=== PATIENT | female | born 1990 | race Caucasian/White ===

== ENCOUNTER 2016-02-25 14:04 | Emergency (ER) | payer BC, MEDICAID ==
[~2016-02-25] VITALS: Ht 170.2 cm; Wt 100.5 kg
[~2016-02-25 14:04] MED LIST: ADVIL200 MG PO; ATIVAN 0.50.5 MG/TAB PO; ATIVAN 1MG T1 MG/TAB PO; BENADRYL50 MG PO; CLINDAMYCIN VG; COLACE 100100 MG/CAP PO; FERROUS SULFATE65 MG PO; IRON325 M1 PO; KEPPRA1000 MG PO; MULTIPLE VITAMI1 CAP PO; NEXPLANON68 MG ID; NO HOME MEDICATIONS; NORCO 325 MG-51 TAB PO; PERCOCET 325 MG1 TA2 PO; PHENERGAN 25 TA25 MG PO; PRENATAL PLUS1 TA2 PO; TYLENOL W/COD1 UDTAB PO; ZOFRAN 4MG T4 MG/TAB PO
[2016-02-25 15:07] LABS: BASO # 0.1 (0.0-0.2); BASO % 0.9 % (0.0-2.0); EOS # 0.2 (0.0-0.7); EOS % 2.5 % (0-4.0); GRAN # 4.2 (1.4-6.5); GRAN % 51.2 % (42.2-75.2); HEMOGLOBIN 14.6 g/dl (12.5-16.0); LYMPH # 3.1 (1.2-3.4); MEAN CELL VOLUME 86 fl (80.0-100.0); MEAN CORPUSCULAR HEMOGLOBIN 31 pg (27.0-31.0); MEAN CORPUSCULAR HGB CONC 37 g/dl (33.0-37.0); MEAN PLATELET VOLUME 10.1 fl (7.4-10.4); MONO # 0.6 (0.1-0.6); MONO % 7.2 % (1.7-9.3); PLATELET COUNT 371 K/mm3 (130-400); RED BLOOD COUNT 4.68 M/mm3 (4.10-5.30); REDCELL DISTRIBUTION WIDTH-CV 12.2 % (11.5-14.5); WHITE BLOOD COUNT 8.1 K/mm3 (4.8-10.8)
[2016-02-25 15:36] LABS: ADJUSTED CALCIUM 9.4 mg/dL (8.4-10.2); ALBUMIN 4.4 gm/dL (3.5-5.0); BILIRUBIN,TOTAL 0.7 mg/dL (0.0-1.0); CALCIUM 9.7 mg/dL (8.4-10.2); CREATININE, serum 0.58 mg/dL (0.52-1.25); POTASSIUM 3.9 mmol/L (3.4-5.0); TOTAL PROTEIN 7.9 gm/dL (6.4-8.2)
[2016-02-25 16:08] LABS: PH 7 (5-8); URINE APPEARANCE Cloudy; URINE BACTERIA Rare /hpf; URINE BILIRUBIN Negative (NEGATIVE); URINE BLOOD 3+ (NEGATIVE); URINE COLOR Yellow; URINE GLUCOSE Negative (NEGATIVE); URINE KETONE Negative (NEGATIVE); URINE RBC >50 /hpf; URINE UROBILINOGEN Negative (NEGATIVE)
[2016-02-25] MEDS ORDERED: NORCO 325 MG-51 TAB PO (16:33)
[2016-02-25] MEDS ORDERED: ZOFRAN ODT4 MG PO (16:33)
[2016-02-25] MEDS ORDERED: CEFTIN500 MG PO (16:33)
[2016-02-25 18:00] VITALS: BP 122/68; PULSE 68; TEMP 98.2
== END 2016-02-25 18:01 | disposition home or self-care (01) ==
LOC: COL.ER 14:04
PROVIDERS: Nurse Practitioner
DX: N39.0 Urinary tract infection, site not specified (principal); K76.0 Fatty (change of) liver, not elsewhere classified; Z87.442 Personal history of urinary calculi; Z90.49 Acquired absence of other specified parts of digestive tract; F17.210 Nicotine dependence, cigarettes, uncomplicated
CPT/HCPCS: J0696; J2270; J2405; J3010; J7030

== ENCOUNTER 2016-08-31 11:10 | Emergency (ER) | payer BC ==
[~2016-08-31] VITALS: Ht 170.2 cm; Wt 99.1 kg
[~2016-08-31 11:10] MED LIST changes: +CEFTIN500 MG PO; +ZOFRAN ODT4 MG PO
[2016-08-31 11:11] VITALS: TEMP 98.9
[2016-08-31] MEDS ORDERED: XANAX .25M0.25 MG/TA PO (11:14)
[2016-08-31 11:37] LABS: HEMATOCRIT 37.3 % (37.0-47.0); HEMOGLOBIN 13.7 g/dl (12.5-16.0); MEAN CELL VOLUME 85 fl (80.0-100.0); MEAN CORPUSCULAR HEMOGLOBIN 31 pg (27.0-31.0); MEAN CORPUSCULAR HGB CONC 37 g/dl (33.0-37.0); PLATELET COUNT 303 K/mm3 (130-400); REDCELL DISTRIBUTION WIDTH-CV 12.6 % (11.5-14.5); WHITE BLOOD COUNT 7.3 K/mm3 (4.8-10.8)
[2016-08-31 11:47] LABS: ALBUMIN 4.2 gm/dL (3.5-5.0); BILIRUBIN,TOTAL 0.9 mg/dL (0.0-1.0); CALCIUM 9.2 mg/dL (8.4-10.2); CREATININE, serum 0.56 mg/dL (0.52-1.25); POTASSIUM 3.5 mmol/L (3.4-5.0); TOTAL PROTEIN 7.3 gm/dL (6.4-8.2)
[2016-08-31 11:48] LABS: ADD PATHOLOGY DIFF REVIEW NO
[2016-08-31 12:03] LABS: PROLACTIN 15.6 ng/mL (3.0-18.6)
[2016-08-31 13:04] LABS: BAND 1 % (0-10); EOSINOPHIL 3 % (0-4); METAMYELOCYTE 1 % (0-0); MYELOCYTE 1 % (0-0); NEUTROPHILS 56 % (42.0-75.2); PLATELET ESTIMATE INCREASED (NORMAL); TOTAL CELLS COUNTED 100
[2016-08-31 13:08] VITALS: BP 101/64; PULSE 75
== END 2016-08-31 13:08 | disposition home or self-care (01) ==
LOC: COL.ER 11:10
PROVIDERS: Emergency Medicine
DX: R55 Syncope and collapse (principal); R56.9 Unspecified convulsions
CPT/HCPCS: J7030

== ENCOUNTER 2017-11-22 07:39 | Emergency (ER) | payer BC ==
[~2017-11-22] VITALS: Ht 167.6 cm; Wt 96.9 kg
[~2017-11-22 07:39] MED LIST changes: +XANAX .25M0.25 MG/TA PO
[2017-11-22 07:47] VITALS: BP 104/62; TEMP 98.4
[2017-11-22] MEDS ORDERED: PROVENTIL0.09 MG/A1 IH (08:33)
[2017-11-22] MEDS ORDERED: PREDNISONE20 MG PO (08:33)
[2017-11-22 08:55] VITALS: PULSE 90
== END 2017-11-22 08:55 | disposition home or self-care (01) ==
LOC: COL.ER 07:39
DX: J98.01 Acute bronchospasm (principal); B34.9 Viral infection, unspecified; Z90.49 Acquired absence of other specified parts of digestive tract; Z98.51 Tubal ligation status; F17.210 Nicotine dependence, cigarettes, uncomplicated

== ENCOUNTER 2022-06-10 11:09 | Emergency (ER) | payer MEDICAID ==
[~2022-06-10] VITALS: Ht 167.6 cm; Wt 95.9 kg
[~2022-06-10 11:09] MED LIST changes: +PREDNISONE20 MG PO; +PROVENTIL0.09 MG/A1 IH
[2022-06-10 11:12] VITALS: TEMP 97.9
[2022-06-10 12:06] LABS: BASO # 0.1 K/mm3 (0.0-0.2); BASO % 0.8 % (0.0-2.0); EOS # 0.2 K/mm3 (0.0-0.7); EOS % 2.2 % (0.0-4.0); GRAN # 5.3 K/mm3 (1.4-6.5); GRAN % 57.1 % (42.2-75.2); HEMATOCRIT 39.7 % (37.0-47.0); HEMOGLOBIN 14.8 g/dl (12.5-16.0); LYMPH # 3.1 K/mm3 (1.2-3.4); LYMPH % 32.9 % (20.0-51.0); MEAN CELL VOLUME 85 fl (80.0-100.0); MEAN CORPUSCULAR HEMOGLOBIN 32 pg (27-31); MEAN CORPUSCULAR HGB CONC 37 g/dl (33.0-37.0); MEAN PLATELET VOLUME 9.8 fl (7.4-10.4); MONO # 0.6 K/mm3 (0.1-0.6); MONO % 6.6 % (1.7-9.3); PLATELET COUNT 414 K/mm3 (130-400); RED BLOOD COUNT 4.66 M/mm3 (4.10-5.30); REDCELL DISTRIBUTION WIDTH-CV 11.9 % (11.5-14.5)
[2022-06-10 12:16] LABS: ALANINE AMINOTRANSFERASE 15 U/L (0-55); ALBUMIN 4.1 gm/dL (3.5-5.0); ALKALINE PHOSPHATASE 54 U/L (40-150); ANION GAP 11 mmol/L (7-16); AST,SGOT 13 U/L (5-34); BILIRUBIN,TOTAL 0.5 mg/dL (0.2-1.2); BLOOD UREA NITROGEN 10 mg/dL (7-19); CALCIUM 9.3 mg/dL (8.4-10.2); CARBON DIOXIDE 18 mmol/L (22-29); CHLORIDE 111 mmol/L (98-107); CREATININE, serum 0.73 mg/dL (0.57-1.11); GLUCOSE 92 mg/dL (70-99); SODIUM 140 mmol/L (136-145); TOTAL PROTEIN 7.6 gm/dL (6.2-8.1)
[2022-06-10 12:17] LABS: ALCOHOL(ethanol),MEDICAL < 10 mg/dL (0-10)
[2022-06-10] MEDS ORDERED: NORCO 325 MG-51 TAB PO (13:06)
[2022-06-10 13:18] VITALS: BP 105/70; PULSE 98
[2022-06-10] MEDS ORDERED: KEPPRA 500MG500 MG PO (14:12)
== END 2022-06-10 13:19 | disposition home or self-care (01) ==
LOC: COL.ER 11:09
PROVIDERS: Emergency Medicine
DX: S09.90XA Unspecified injury of head, initial encounter (principal); S49.92XA Unspecified injury of left shoulder and upper arm, initial encounter; G40.909 Epilepsy, unspecified, not intractable, without status epilepticus; T42.6X6A Underdosing of other antiepileptic and sedative-hypnotic drugs, initial encounter; Z91.128 Patient's intentional underdosing of medication regimen for other reason; Z88.5 Allergy status to narcotic agent; Z28.310 Unvaccinated for COVID-19; Z87.81 Personal history of (healed) traumatic fracture; W18.30XA Fall on same level, unspecified, initial encounter; Y92.59 Other trade areas as the place of occurrence of the external cause; Y99.0 Civilian activity done for income or pay
CPT/HCPCS: J1953; J3010; J7030

== ENCOUNTER 2023-01-10 10:48 | Emergency (ER) | payer MEDICAID ==
[~2023-01-10] VITALS: Ht 167.6 cm; Wt 105.5 kg
[~2023-01-10 10:48] MED LIST changes: +KEPPRA 500MG500 MG PO
[2023-01-10 10:49] VITALS: TEMP 98.6
[2023-01-10 11:28] LABS: COLLECTION METHOD CLEAN CATCH
[2023-01-10 11:49] LABS: TRICYCLIC ANTIDEPRESS URINE NEGATIVE
[2023-01-10 11:57] LABS: BASO # 0.1 K/mm3 (0.0-0.2); EOS # 0.3 K/mm3 (0.0-0.7); EOS % 3.2 % (0.0-4.0); GRAN # 4.5 K/mm3 (1.4-6.5); GRAN % 55.3 % (42.2-75.2); HEMATOCRIT 41.7 % (37.0-47.0); HEMOGLOBIN 14.4 g/dl (12.5-16.0); LYMPH # 2.6 K/mm3 (1.2-3.4); LYMPH % 32.6 % (20.0-51.0); MEAN CELL VOLUME 91 fl (80.0-100.0); MEAN CORPUSCULAR HEMOGLOBIN 31 pg (27-31); MEAN CORPUSCULAR HGB CONC 35 g/dl (33.0-37.0); MEAN PLATELET VOLUME 9.5 fl (7.4-10.4); MONO # 0.6 K/mm3 (0.1-0.6); MONO % 7.5 % (1.7-9.3); PLATELET COUNT 413 K/mm3 (130-400); REDCELL DISTRIBUTION WIDTH-CV 12.7 % (11.5-14.5)
[2023-01-10 12:02] LABS: URINE APPEARANCE Clear (CLEAR/HAZY); URINE BLOOD TRACE-INTACT (NEGATIVE); URINE COLOR Yellow (YELLOW); URINE GLUCOSE Negative (NEGATIVE); URINE KETONE Negative (NEGATIVE); URINE NITRATE Negative (NEGATIVE); URINE PROTEIN(semi-quant) Negative (NEGATIVE); URINE UROBILINOGEN 0.2 E.U/dL (0.2-1.0)
[2023-01-10 12:03] LABS: URINE RBC 0-2 /hpf (0-2)
[2023-01-10 12:06] LABS: ALBUMIN 3.8 gm/dL (3.5-5.0); BILIRUBIN,TOTAL 0.4 mg/dL (0.2-1.2); CALCIUM 9.2 mg/dL (8.4-10.2); CREATININE, serum 0.68 mg/dL (0.57-1.11); POTASSIUM 3.9 mmol/L (3.5-4.5); TOTAL PROTEIN 7.4 gm/dL (6.2-8.1)
[2023-01-10 13:17] VITALS: BP 127/79; PULSE 85
== END 2023-01-10 13:17 | disposition home or self-care (01) ==
LOC: COL.ER 10:48
PROVIDERS: Emergency Medicine
DX: R56.9 Unspecified convulsions (principal); Z79.899 Other long term (current) drug therapy

== ENCOUNTER 2023-02-22 10:40 | Emergency (ER) | payer SELFPAY ==
[~2023-02-22] VITALS: Ht 167.6 cm; Wt 116.4 kg
[2023-02-22 10:46] VITALS: TEMP 97.8
[2023-02-22 13:14] LABS: COLLECTION METHOD CLEAN CATCH
[2023-02-22] MEDS ORDERED: LR 1,000 ML IV ONE (13:15)
[2023-02-22] MEDS ORDERED: droPERidol 2.5 MG/ML 2 ML VIAL IV ONE (13:15)
[2023-02-22 13:23] LABS: BASO # 0.1 K/mm3 (0.0-0.2); EOS # 0.1 K/mm3 (0.0-0.7); EOS % 1.2 % (0.0-4.0); GRAN # 3.6 K/mm3 (1.4-6.5); GRAN % 51.9 % (42.2-75.2); HEMATOCRIT 39.4 % (37.0-47.0); HEMOGLOBIN 14.4 g/dl (12.5-16.0); LYMPH # 2.4 K/mm3 (1.2-3.4); LYMPH % 35.1 % (20.0-51.0); MEAN CELL VOLUME 88 fl (80.0-100.0); MEAN CORPUSCULAR HEMOGLOBIN 32 pg (27-31); MEAN CORPUSCULAR HGB CONC 37 g/dl (33.0-37.0); MEAN PLATELET VOLUME 9.3 fl (7.4-10.4); MONO # 0.7 K/mm3 (0.1-0.6); MONO % 10.4 % (1.7-9.3); PLATELET COUNT 394 K/mm3 (130-400); RED BLOOD COUNT 4.48 M/mm3 (4.10-5.30); REDCELL DISTRIBUTION WIDTH-CV 12.5 % (11.5-14.5)
[2023-02-22 13:24] LABS: PH 5.5 (5.0-8.5); URINE APPEARANCE Clear (CLEAR/HAZY); URINE BLOOD Negative (NEGATIVE); URINE COLOR Yellow (YELLOW); URINE GLUCOSE Negative (NEGATIVE); URINE KETONE Negative (NEGATIVE); URINE NITRATE Negative (NEGATIVE); URINE PROTEIN(semi-quant) Negative (NEGATIVE); URINE UROBILINOGEN 0.2 E.U/dL (0.2-1.0)
[2023-02-22 13:32] LABS: ALBUMIN 3.9 gm/dL (3.5-5.0); BILIRUBIN,TOTAL 0.3 mg/dL (0.2-1.2); CALCIUM 9.2 mg/dL (8.4-10.2); CREATININE, serum 0.78 mg/dL (0.57-1.11); TOTAL PROTEIN 7.8 gm/dL (6.2-8.1)
[2023-02-22 13:33] LABS: SQUAMOUS EPITHELIAL 0-2 /hpf (0-10)
[2023-02-22 13:34] LABS: URINE BACTERIA Moderate /hpf (NONE SEEN); URINE RBC 0-2 /hpf (0-2)
[2023-02-22] MEDS ORDERED: Acetaminophen 500 MG TAB PO ONE (13:45)
[2023-02-22] MEDS ORDERED: CEFTRIAXONE IV ONE (14:00)
[2023-02-22] MEDS ORDERED: WATER FOR INJECTION STERILE IV ONE (14:00)
[2023-02-22] MEDS ORDERED: VANTIN 200200 MG/TAB PO (14:05)
[2023-02-22] MEDS ORDERED: ZOFRAN ODT4 MG PO (14:05)
[2023-02-22 14:08] VITALS: BP 122/86; PULSE 83
[2023-02-22] MEDS ORDERED: cefTRIAXone 2 G in Water For Injection,Sterile 20 ML IV ONE (14:15)
== END 2023-02-22 14:21 | disposition home or self-care (01) ==
LOC: COL.ER 10:40
PROVIDERS: Emergency Medicine
DX: N39.0 Urinary tract infection, site not specified (principal); R11.2 Nausea with vomiting, unspecified; Z90.49 Acquired absence of other specified parts of digestive tract; Z88.1 Allergy status to other antibiotic agents
CPT/HCPCS: J0696; J1790; J7120